=== PATIENT | male | born 1930 | race Caucasian/White ===

== ENCOUNTER 2016-11-02 08:38 | Day surgery (SDC) | payer MEDICARE, OTHER ==
[2016-11-02] VITALS (9 sets, daily range): BP systolic 125–138; BP diastolic 55–70; PULSE 59–66; RESP 15–18; Ht 177.8 cm; Wt 91.9 kg
[~2016-11-02] VITALS: Ht 177.8 cm; Wt 91.9 kg
[~2016-11-02 08:38] MED LIST: SOD CHLORIDE 0.9% 1,000 ML IV SCH
[2016-11-02] MEDS ORDERED: LIDOCAINE 1% (MDV) 20 ML INJ ONE (09:25)
[2016-11-02] MEDS ORDERED: VERAPAMIL 5 MG INJ ONE (09:25)
[2016-11-02] MEDS ORDERED: IODIXANOL LOCM 100 ML BTL ONE ×2 (09:25→12:56)
[2016-11-02] MEDS ORDERED: MIDAZOLAM 1 MG/ML 2 ML INJ ONE (09:26)
[2016-11-02] MEDS ORDERED: FENTAnyl 50 MCG/ML VIAL ONE (09:26)
[2016-11-02] MEDS ORDERED: TORS10TA18 PO (09:29)
[2016-11-02] MEDS ORDERED: SPIR50TA PO (09:29)
[2016-11-02] MEDS ORDERED: CARV6.2579 PO (09:30)
[2016-11-02] MEDS ORDERED: ASPI81TA3 PO (09:30)
[2016-11-02] MEDS ORDERED: ATOR80TA75 PO (09:30)
[2016-11-02] MEDS ORDERED: ISOS10TA2 PO (09:30)
[2016-11-02] MEDS ORDERED: VIT1CAPS42 PO (09:31)
[2016-11-02] MEDS ORDERED: SACU1TAB7 PO (09:31)
[2016-11-02] MEDS ORDERED: TOLT2TAB13 PO (09:32)
[2016-11-02] MEDS ORDERED: ACET-2047 PO (09:32)
[2016-11-02] MEDS ORDERED: LACT1CAP56 PO (09:32)
[2016-11-02 10:03] LABS: ADD SCAN DIFF NO
[2016-11-02 10:05] LABS: BASOPHIL # 0.1 10^3/ul (0.0-0.1); BASOPHILS % 0.6 % (0.0-2.0); EOSINOPHILS # 0.4 10^3/ul (0.0-0.5); EOSINOPHILS % 4.8 % (0.0-7.0); HEMATOCRIT 37.9 % (42.0-52.0); LYMPHOCYTES # 1.8 10^3/ul (0.8-2.9); LYMPHOCYTES % 21.4 % (15.0-51.0); MEAN CORPUSCULAR HEMOGLOBIN 32.6 pg (29.0-33.0); MEAN CORPUSCULAR HGB CONC 34.3 g/dl (32.0-37.0); MEAN PLATELET VOLUME 11.3 fl (7.4-10.4); MONOCYTE # 0.6 10^3/ul (0.3-0.9); MONOCYTES % 7.1 % (0.0-11.0); NEUTROPHIL # 5.6 10^3/ul (1.6-7.5); NEUTROPHILS % 65.7 % (39.0-77.0); PLATELET COUNT 151 10^3/UL (140-415); RED BLOOD COUNT 3.99 10^6/ul (4.70-6.10); RED CELL DISTRIBUTION WIDTH 13.9 % (11.5-14.5); WHITE BLOOD COUNT 8.5 10^3/ul (4.8-10.8)
[2016-11-02 10:31] LABS: INR 1.06; PROTIME 13.8 Sec (12.2-14.2); PT RATIO 1.1
[2016-11-02 10:32] LABS: PARTIAL THROMBOPLASTIN TIME 30.6 Sec (25.0-35.0)
[2016-11-02 10:33] LABS: CREATININE 1.02 mg/dl (0.61-1.24)
[2016-11-02 10:36] LABS: CALCIUM 9.2 mg/dl (8.4-10.2)
[2016-11-02] MEDS ORDERED: SOD CHLORIDE 0.9% 1,000 ML IV SCH (13:28)
[2016-11-02] MEDS ORDERED: ONDANSETRON 4 MG INJ IV PRN (13:30)
[2016-11-02] MEDS ORDERED: AL HYDROX/MG HYDROX/SIMETH 30 ML CUP PO PRN (13:30)
[2016-11-02] MEDS ORDERED: ACETAMINOPHEN 325 MG TAB PO PRN (13:30)
--- NOTE | 2016-11-02 13:31 | PDOCDIS ---
Discharge Instructions CONDITION Patient Condition: Good HOME CARE INSTRUCTIONS: Diet Instructions: Low Fat /Cholesterol ACTIVITY: Activity Restrictions: Avoid heavy lifting (x 3 days) Do not Drive (x 3 days) Sai Devine DO November 02, 2016 13:31
--- NOTE | 2016-11-02 15:13 | CARRPT ---
DATE OF PROCEDURE: 11/02/2016 PROCEDURES: 1. Left heart catheterization. 2. Right and left coronary angiogram, as well as bypass grafts. 3. Interpretation and supervision of right and left coronary angiogram. 4. Left ventricular pressure measurements. 5. Distal abdominal aortogram with bilateral lower extremity runoff. 6. catheter placement. 7. Interpretation and supervision of distal abdominal aortogram and bilateral lower extremity runof f. 8. Right femoral artery approach. PATIENT HISTORY: This is an 86-year-old male with a history of coronary artery bypass graft, who pr esents with a worsening ejection fraction with a known history of coronary artery disease as well as quantification with abnormal ABIs. FINDINGS: CORONARY ANATOMY: 1. Left main is a medium caliber vessel and appears short. No significant disease. 2. Circumflex. The proximal portion is seen via the [place] with 40% disease in the mid into an obtu se marginal with 100% occlusion with collaterals left to left, feeding the distal obtuse marginal. The second obtuse marginal and distal circumflex was seen via the saphenous vein graft with 10% diff use stenosis. 3. LAD, is seen via the APARICIO injection, given it is occluded 100% at the ostium. The proximal vesse l with 80% diffuse stenosis, mid 40% stenosis, distal to the APARICIO anastomosis there is 20% diffuse s tenosis. 4. RCA is a dominant vessel, medium caliber. There is a mid 100% occlusion. The mid to distal ves prudencio is seen via the saphenous vein graft, with 90% stenosis at the bifurcation prior to the PDA and PLD, with 20% diffuse stenosis in the PDA. 5. Saphenous vein graft to the PDA is patient. There is a proximal 30% stenosis, a mid 30% stenosis and a distal 20% stenosis. 6. Saphenous vein graft to the circumflex/obtuse marginal is patent, with mid 20% stenosis. 7. APARICIO to LAD is patent with mid 10% stenosis. There were 3 other stumps found off the ascending aorta. HEMODYNAMICS: 1. LV pressure was 121/-1, with an EDP of 8. 2. Aortic pressure was 117/41. DISTAL ABDOMINAL AORTOGRAM FINDINGS: Distal abdominal aorta with diffuse calcification, with 20% st enosis. Left side: 1. Left common iliac was tortuous, but no significant disease. Left external iliac with no signifi cant disease. Left common femoral with severe calcification, approximately 40% to 50% area of steno sis in the left common femoral, but given diffuse calcification difficult to fully ascertain the per cent of stenosis. There is slow flow seen through that region. 2. Left SFA is severely calcified. There is a proximal 30% stenosis, a mid 80% stenosis, and a mid to distal 70% stenosis. 3. The popliteal is a medium caliber vessel with 20% mid stenosis. with proximal 89% diffuse s tenosis. The peroneal is patent with mild diffuse disease. The posterior tibial is patent with mil d diffuse disease. There is 2-vessel runoff going down to the ankle. Right side: Right common iliac with proximal 30% stenosis with diffuse calcification. The right external iliac with distal 20% stenosis. Right common femoral is severely calcified with diffuse 20% stenosis. Th e right SFA with ostial 70% to 80% stenosis, with diffuse calcification throughout the SFA. There i s significant collateral flow coming from the profunda, feeding the right SFA. Mid SFA has diffuse disease and severely calcified, approximately 60% to 70%. The right popliteal with mid 30% stenosis . There is a patent anterior tibial, and peroneal with mild diffuse disease with 2-vessel runoff to the ankle. DESCRIPTION OF PROCEDURE: The patient was brought to the crime lab technician after informed consent. The nuria ent was prepped and draped as per protocol. Right femoral artery access was obtained using a microp uncture needle ultrasound guidance, given diffuse calcification. A 5-[place] sheath was placed. A J L4 diagnostic catheter was used to engage the left main. Angiogram was performed. A JR4 catheter t o enter the left ventricle and pressure measurements were obtained, as well as pullback. We next en gaged the RCA. Angiogram was performed. We next engaged the multiple bypass grafts off the ascendi ng aorta. We next attempted to engage the left subclavian with the JR4, but was unsuccessful. We u sed a multipurpose and was able to engage the left subclavian. Given the severe tortuosity in the l eft subclavian, we used a Glidewire and were able to transverse the area of tortuosity and use an IM catheter, 5 [place], to engage the left APARICIO. Angiogram was performed of the APARICIO. At a point we s aw all major 3 bypasses were patent. We next turned our attention to the distal abdominal aorta. A 5 [place] Omni flush was used to do a distal abdominal aortogram. Next attempted to use that to go up and overall to the left iliac, but unsuccessful. We switched out for a RIM 5 [place] catheter. We were able to use that and with the G lidewire too our RIM catheter down to the mid vessel. We next switched out for a glide catheter do wn to the left common femoral artery. Selective shots were performed of the left lower extremity wi th DSA down to the heel. We next pulled out our catheter and used the 5 [place] sheath on the right common femoral to do selective shots of the right lower extremity down to the ankle doing selective shots with DSA. All catheters and wires were removed. Plans were for pulling sheaths with manual h emostasis given severe calcification of the right common femoral artery. There were no immediate co mplications. DIAGNOSES: 1. Coronary artery disease with patent APARICIO to LAD, SVG to RCA, SVG to obtuse marginal. 2. Severe peripheral arterial disease. COMPLICATIONS: None. BLOOD LOSS: Minimal. CONTRAST USED: 120 mL. RECOMMENDATIONS: Medical management, consider upgrade to biventricular ICD. Lower extremity interv ention if no improvement with maximal medical therapy for peripheral arterial disease. Findings and plan of care discussed with patient and daughter. Dictated By: DEANGELO LITTLE/NEW Conf#: [id number] DID#: [id number]
--- NOTE | 2016-11-03 16:39 | RADRPT ---
Vent Rate: 60 bpm RR Interval: 0 msec NV Interval: 0 msec QRS Duration: 230 msec QT Interval: 558 msec QTC Interval: 558 msec P-R-T [place]: 0 - -82 - 96 degrees AV sequential or dual chamber electronic pacemaker Electronically Signed By: Obie Zuñiga [id number]
== END 2016-11-02 19:00 | disposition home or self-care (01) ==
LOC: SDS 08:38
PROVIDERS: ATTEND Internal Medicine Cardiovascular Disease
DX: I25.10 Atherosclerotic heart disease of native coronary artery without angina pectoris (principal); I50.9 Heart failure, unspecified; I73.9 Peripheral vascular disease, unspecified
CPT/HCPCS: 36200; 75630; 80048; 85025; 85610; 85730; 93005; 93459; C1769; C1887; C1894; J1644; J2250; J3010; Q9967